=== PATIENT | male | born 1945 | race Caucasian/White ===

== ENCOUNTER 2018-02-07 21:49 | Emergency (ER) | payer MEDICARE, BC ==
[2018-02-07 22:31] VITALS: RESP 20; TEMP 98.1
[2018-02-08 00:12] LABS: Anisocytosis Slight; Basophils % (A) 1 %; Eosinophils # (A) 0.2 k/uL (0-0.7); Eosinophils % (A) 2 %; HCT 45.7 % (39.0-53.0); HGB 14.8 gm/dL (13.0-17.5); Lymphocytes # (A) 1.1 k/uL (1.0-4.8); Lymphocytes % (A) 17 %; MCH 28.8 pg (25.0-35.0); MCHC 32.4 g/dL (31.0-37.0); Mean Platelet Volume 6.8; Monocytes # (A) 0.3 k/uL (0-1.0); Monocytes % (A) 5 %; Neutrophils # (A) 4.6 k/uL (1.3-7.7); Neutrophils % (A) 71 %; Platelet Count 224 k/uL (150-450); Poikilocytosis Slight; RBC 5.13 m/uL (4.30-5.90); RDW 16.6 % (11.5-15.5); WBC 6.4 k/uL (3.8-10.6)
[2018-02-08 00:23] LABS: INR 2.8 (<1.2); Prothrombin Time 25.5 sec (9.0-12.0)
--- NOTE | 2018-02-08 00:23 | XR ---
EXAMINATION TYPE: XR chest 1V DATE OF EXAM: 02/08/2018 COMPARISON: NONE HISTORY: Leg swelling TECHNIQUE: Single frontal view of the chest is obtained. FINDINGS: There is no heart failure nor confluent pneumonic infiltrate. Heart is probably enlarged. There is left axillary pacemaker with the lead tips over the right ventricle. There is no sign of ple ural effusion. Bony thorax is intact. IMPRESSION: Cardiomegaly. No active cardiopulmonary disease. No overt heart failure.
[2018-02-08 00:32] LABS: Albumin 4.2 g/dL (3.5-5.0); C Reactive Protein 13.4 mg/L (<10.0); Calcium 8.7 mg/dL (8.4-10.2); Magnesium 2.1 mg/dL (1.6-2.3); Potassium 3.5 mmol/L (3.5-5.1); Total Bilirubin 0.6 mg/dL (0.2-1.3); Total Protein 6.3 g/dL (6.3-8.2)
--- NOTE | 2018-02-08 01:25 | ED ---
Extremity Problem HPI - General Chief complaint: Extremity Problem,Nontraumatic Stated complaint: LE swelling/rash Time Seen by Provider: 02/07/18 23:40 Source: patient, RN notes reviewed Mode of arrival: ambulatory Limitations: no limitations - History of Present Illness Initial comments: This is a 73-year-old male presents emergency Department chief complaint of bilateral lower extremity swelling, rash. He states his started over the last few days. Patient states that he is very strict on his fluid intake and watches his weight secondary to history of CHF. Patient states that he also has renal failure. Patient states his creatinine is usually between 1.3 and 1.6. Patient states that he hasgained some weight notices red rash which is not painful or itchy on his legs. Patient states that he's had minimal shortness of breath. Patient states he takes Lasix 60 mg twice a day. 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 He states he's had no dietary changes no medication changes. Patient's last hospitalization was for dehydration. - Related Data Home Medications Medication Instructions Recorded Confirmed Diltiazem Cd [Cardizem CD] 180 mg PO DAILY 02/02/15 02/02/15 Furosemide [Lasix] 80 mg PO DAILY 02/02/15 02/02/15 Irbesartan 300 mg PO DAILY 02/02/15 02/02/15 Metoprolol Succinate [Toprol XL] 50 mg PO BID 02/02/15 02/02/15 Potassium Chloride [Klor-Con 10] 10 meq PO DAILY 02/02/15 02/02/15 Warfarin [Coumadin] 1.25 mg PO DAILY 02/02/15 02/02/15 Allergies Allergy/AdvReac Type Severity Reaction Status Date / Time No Known Allergies Allergy Verified 02/07/18 22:31 Review of Systems ROS Statement: Those systems with pertinent positive or pertinent negative responses have been documented in the HPI. ROS Other: All systems not noted in ROS Statement are negative. Past Medical History Past Medical History: Atrial Fibrillation, Heart Failure, Hyperlipidemia, Hypertension, Renal Disease History of Any Multi-Drug Resistant Organisms: None Reported Past Surgical History: Cholecystectomy, Hernia Repair, Pacemaker Past Psychological History: No Psychological Hx Reported Smoking Status: Never smoker Past Alcohol Use History: None Reported Past Drug Use History: None Reported General Exam Limitations: no limitations General appearance: alert, in no apparent distress Head exam: Present: atraumatic, normocephalic, normal inspection Respiratory exam: Present: normal lung sounds bilaterally. Absent: respiratory distress, wheezes, rales, rhonchi, stridor Cardiovascular Exam: Present: regular rate, normal rhythm, normal heart sounds. Absent: systolic murmur, diastolic murmur, rubs, gallop, clicks Extremities exam: Present: other (Bilateral lower extremities neurovascular intact there is 1+ pitting edema noted, there is erythematous macular rash surrounding his knees, anterior cordon region there is no warmth to the rash) Course Vital Signs 02/07/18 22:28 Temperature 98.1 F Pulse Rate 99 Respiratory 20 Rate Blood Pressure 136/85 O2 Sat by Pulse 96 Oximetry Medical Decision Making - Medical Decision Making 73-year-old male presents from for leg swelling in rash. Patient has had mild leg swelling though he has no evidence of acute CHF. Patient will continue his Lasix as directed. He does have a vasculitis type rash. At this time he has a follow-up appointment Friday he will wears compression stockings continuation of his normal prescription meds and return for any worsening symptoms. - Lab Data Result diagrams: 02/08/18 00:03 02/08/18 00:03 Lab Results 02/08/18 02/08/18 02/08/18 Range/Units 00:03 00:03 00:03 WBC 6.4 (3.8-10.6) k/uL RBC 5.13 (4.30-5.90) m/uL Hgb 14.8 (13.0-17.5) gm/dL Hct 45.7 (39.0-53.0) % MCV 89.0 (80.0-100.0) fL MCH 28.8 (25.0-35.0) pg MCHC 32.4 (31.0-37.0) g/dL RDW 16.6 H (11.5-15.5) % Plt Count 224 (150-450) k/uL Neutrophils % 71 % Lymphocytes % 17 % Monocytes % 5 % Eosinophils % 2 % Basophils % 1 % Neutrophils # 4.6 (1.3-7.7) k/uL Lymphocytes # 1.1 (1.0-4.8) k/uL Monocytes # 0.3 (0-1.0) k/uL Eosinophils # 0.2 (0-0.7) k/uL Basophils # 0.0 (0-0.2) k/uL Poikilocytosis Slight Anisocytosis Slight ESR 3 (0-15) mm/hr PT (9.0-12.0) sec INR (<1.2) APTT (22.0-30.0) sec Sodium 143 (137-145) mmol/L Potassium 3.5 (3.5-5.1) mmol/L Chloride 108 H (98-107) mmol/L Carbon Dioxide 27 (22-30) mmol/L Anion Gap 8 mmol/L BUN 18 (9-20) mg/dL Creatinine 1.20 (0.66-1.25) mg/dL Est GFR (CKD-EPI)AfAm 68 (>60 ml/min/1.73 sqM) Est GFR (CKD-EPI)NonAf 59 (>60 ml/min/1.73 sqM) Glucose 122 H (74-99) mg/dL Calcium 8.7 (8.4-10.2) mg/dL Magnesium 2.1 (1.6-2.3) mg/dL Total Bilirubin 0.6 (0.2-1.3) mg/dL AST 30 (17-59) U/L ALT 36 (21-72) U/L Alkaline Phosphatase 85 (38-126) U/L C-Reactive Protein 13.4 H (<10.0) mg/L NT-Pro-B Natriuret Pep 683 pg/mL Total Protein 6.3 (6.3-8.2) g/dL Albumin 4.2 (3.5-5.0) g/dL 02/08/18 Range/Units 00:03 WBC (3.8-10.6) k/uL RBC (4.30-5.90) m/uL Hgb (13.0-17.5) gm/dL Hct (39.0-53.0) % MCV (80.0-100.0) fL MCH (25.0-35.0) pg MCHC (31.0-37.0) g/dL RDW (11.5-15.5) % Plt Count (150-450) k/uL Neutrophils % % Lymphocytes % % Monocytes % % Eosinophils % % Basophils % % Neutrophils # (1.3-7.7) k/uL Lymphocytes # (1.0-4.8) k/uL Monocytes # (0-1.0) k/uL Eosinophils # (0-0.7) k/uL Basophils # (0-0.2) k/uL Poikilocytosis Anisocytosis ESR (0-15) mm/hr PT 25.5 H (9.0-12.0) sec INR 2.8 H (<1.2) APTT 33.0 H (22.0-30.0) sec Sodium (137-145) mmol/L Potassium (3.5-5.1) mmol/L Chloride (98-107) mmol/L Carbon Dioxide (22-30) mmol/L Anion Gap mmol/L BUN (9-20) mg/dL Creatinine (0.66-1.25) mg/dL Est GFR (CKD-EPI)AfAm (>60 ml/min/1.73 sqM) Est GFR (CKD-EPI)NonAf (>60 ml/min/1.73 sqM) Glucose (74-99) mg/dL Calcium (8.4-10.2) mg/dL Magnesium (1.6-2.3) mg/dL Total Bilirubin (0.2-1.3) mg/dL AST (17-59) U/L ALT (21-72) U/L Alkaline Phosphatase (38-126) U/L C-Reactive Protein (<10.0) mg/L NT-Pro-B Natriuret Pep pg/mL Total Protein (6.3-8.2) g/dL Albumin (3.5-5.0) g/dL Disposition Clinical Impression: Localized swelling of both lower legs, Vasculitis Disposition: HOME SELF-CARE Condition: Stable Instructions: Leg Edema (ED) Additional Instructions: Please return to the Emergency Department if symptoms worsen or any other concerns. Is patient prescribed a controlled substance at d/c from ED?: No Referrals: Nonstaff,Physician [Primary Care Provider] - 1-2 days Time of Disposition: 01:51
[2018-02-08 01:41] LABS: Erythrocyte Sedimentation Rate 3 mm/hr (0-15)
[2018-02-08 02:16] VITALS: BP 146/99; PULSE 77
== END 2018-02-08 02:16 | disposition home or self-care (01) ==
LOC: EC 21:49
DX: I77.6 Arteritis, unspecified (principal); M79.89 Other specified soft tissue disorders; I48.91 Unspecified atrial fibrillation; I11.0 Hypertensive heart disease with heart failure; I50.9 Heart failure, unspecified; Z79.01 Long term (current) use of anticoagulants; Z79.899 Other long term (current) drug therapy; Z95.0 Presence of cardiac pacemaker
CPT/HCPCS: 36415; 71045; 80053; 83735; 83880; 85025; 85610; 85652; 85730; 86140; 99283

== ENCOUNTER 2018-07-01 12:59 | Emergency (ER) | payer MEDICARE, BC ==
[2018-07-01 13:51] VITALS: BP 129/64; PULSE 95; RESP 18; TEMP 97.8
[2018-07-01] MEDS ORDERED: LIDOCAINE 1% INJ 10MG/ML (20 ML MDV) SQ ONE (15:12)
--- NOTE | 2018-07-01 15:18 | ED ---
General Adult HPI - General Chief complaint: Wound/Laceration Stated complaint: Lt humb LAC, on blood thinners Source: patient Mode of arrival: ambulatory Limitations: no limitations - History of Present Illness Initial comments: Dictation was produced using [employer] dictation software. please excuse any grammatical, word or spelling errors. Chief Complaint: 73-year-old male past medical history of atrial fibrillation on Coumadin presents with thumb laceration to the left hand. History of Present Illness: Patient is 73-year-old male. He is on Coumadin for atrial fibrillation. Patient states he cut his finger on a table saw approximately 3 hours ago. Patient states he was bleeding however it has stopped since he has been applying pressure to his thumb. Patient has any functional loss to his DIP joint of the thumb. The ROS documented in this emergency department record has been reviewed and confirmed by me. Those systems with pertinent positive or negative responses have been documented in the HPI. All other systems are other negative and/or noncontributory. - Related Data Home Medications Medication Instructions Recorded Confirmed Aspirin EC [Ecotrin] 325 mg PO DAILY 07/01/18 07/01/18 Diltiazem HCl [Cardizem Cd] 360 mg PO DAILY 07/01/18 07/01/18 Furosemide [Lasix] 40 mg PO BID 07/01/18 07/01/18 Loratadine 10 mg PO DAILY 07/01/18 07/01/18 Potassium Chloride ER [K-Dur 20] 20 meq PO DAILY 07/01/18 07/01/18 Pramipexole [Mirapex] 0.5 mg PO BID 07/01/18 07/01/18 Warfarin [Coumadin] 2.5 mg PO MO 07/01/18 07/01/18 Warfarin [Coumadin] 2.5 mg PO SUTUWETHFRSA 07/01/18 07/01/18 Allergies Allergy/AdvReac Type Severity Reaction Status Date / Time No Known Allergies Allergy Verified 07/01/18 15:10 Review of Systems ROS Statement: Those systems with pertinent positive or pertinent negative responses have been documented in the HPI. ROS Other: All systems not noted in ROS Statement are negative. Past Medical History Past Medical History: Atrial Fibrillation, Heart Failure, Hyperlipidemia, Hypertension, Renal Disease History of Any Multi-Drug Resistant Organisms: None Reported Past Surgical History: Cholecystectomy, Hernia Repair, Pacemaker Past Psychological History: No Psychological Hx Reported Smoking Status: Never smoker Past Alcohol Use History: None Reported Past Drug Use History: None Reported General Exam - General Exam Comments Initial Comments: PHYSICAL EXAM: General Impression: Alert and oriented x3, not in acute distress HEENT: Normocephalic atraumatic, extra-ocular movements intact, pupils equal and reactive to light bilaterally, mucous membranes moist. Cardiovascular: Heart regular rate and rhythm, S1&S2 audible, no murmurs, rubs or gallops Chest: Lungs clear to auscultation bilaterally, no rhonchi, no wheeze, no rales Abdomen: Bowel sounds present, abdomen soft, non-tender, non-distended, no organomegaly Musculoskeletal: Pulses present and equal in all extremities, no peripheral edema Motor: Power 5/5 bilaterally, no focal deficits noted Neurological: CN II-XII grossly intact, no focal motor or sensory deficits noted Left hand: 1 mm wide laceration is superficial to the left distal thumb on the volar surface. Approximately is 1 cm in length Psych: Normal affect and mood Limitations: no limitations Course Vital Signs 07/01/18 13:49 Temperature 97.8 F Pulse Rate 95 Respiratory 18 Rate Blood Pressure 129/64 O2 Sat by Pulse 95 Oximetry Procedures - Laceration Laceration #1 Consent Obtained: verbal consent Time Out Performed: Yes Indication: laceration Site: hand, other Size (cm): 1 Description: linear Depth: simple, single layer Pre-repair: wound explored, irrigated extensively Type of Sutures: nylon Size of Sutures: 4-0 Number of Sutures: 4 Technique: simple, interrupted Patient Tolerated Procedure: well Medical Decision Making - Medical Decision Making ED course: 73-year-old male on Coumadin presents with thumb laceration. Patient is refusing x-ray. Vital signs upon arrival are within acceptable limits. Patient states he had a tetanus shot less than 10 years ago over his unsure if it's more than 5 years ago. Patient refusing tetanus shot due to uncertain time. Suture repair was performed using 4-0 nylon. Patient be discharged. Told to take his sutures out in 2 weeks. Patient placed in a splint and bandage applied. Disposition Clinical Impression: Laceration Disposition: HOME SELF-CARE Condition: Good Instructions: Laceration (ED) Additional Instructions: remove stitches in 14 days Is patient prescribed a controlled substance at d/c from ED?: No Referrals: Nonstaff,Physician [Primary Care Provider] - 1-2 days Time of Disposition: 15:55
== END 2018-07-01 16:16 | disposition home or self-care (01) ==
LOC: EC 12:59
DX: S61.012A Laceration without foreign body of left thumb without damage to nail, initial encounter (principal); I11.0 Hypertensive heart disease with heart failure; I50.9 Heart failure, unspecified; E78.5 Hyperlipidemia, unspecified; I48.91 Unspecified atrial fibrillation; Z79.01 Long term (current) use of anticoagulants; Z79.82 Long term (current) use of aspirin; Z79.899 Other long term (current) drug therapy; Z95.0 Presence of cardiac pacemaker; W31.2XXA Contact with powered woodworking and forming machines, initial encounter
CPT/HCPCS: 99282; 12001; J2001

== ENCOUNTER → 2018-07-08 | Outpatient (CLI) | payer MEDICARE, BC ==
--- NOTE | 2018-07-08 15:50 | CT ---
EXAMINATION TYPE: CT lumbar spine wo con DATE OF EXAM: 07/08/2018 3:30 PM COMPARISON: None HISTORY: Left leg pain and numbness x [address] DLP: 1763.2 mGycm Automated exposure control for dose reduction was used. TECHNIQUE: Unenhanced CT of the lumbar spine was performed. Bone and soft tissue window settings are submitted as well as coronal and sagittal reconstructions. FINDINGS: The lumbar spine vertebral bodies maintain normal vertebral body height and alignment. Ante rior osteophytes are seen within the lower lumbar spine and thoracolumbar junction. Mild facet arthro naveed is seen of the lower lumbar spine. No significant scoliosis is noted. No acute fracture or henna lignment of the lumbar spine. 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 L1-L2: Normal disc space height. No disc herniation protrusion or central stenosis. No facet joint arthropathy. No evidence for foraminal encroachment. L2-L3: There is a broad-based disc bulge resulting in mild bilateral neural foraminal narrowing and n o spinal canal stenosis. L3-L4: There is a broad-based disc bulge, facet arthropathy and ligamentum flavum buckling resulting in mild left and moderate right neural foraminal narrowing. No significant spinal canal stenosis. L4-L5: There is a broad-based disc bulge, ligamentum flavum buckling and facet arthropathy resulting in moderate bilateral neural foraminal narrowing. No spinal canal stenosis. L5-S1: There is a small central disc herniation superimposed upon a broad-based disc bulge that is le ft eccentric resulting in moderate left and [id number] right neural foraminal narrowing. No sig nificant spinal canal stenosis. IMPRESSION: 1. Small central disc herniation at L5-S1 superimposed upon a left eccentric broad-based disc bulge r esulting in moderate left neural foraminal narrowing. 2. Mild to moderate multilevel degenerative disc disease of the lumbar spine resulting in variable de grees of neural foraminal narrowing as described above. 3. No evidence of vertebral body height loss or malalignment of the lumbar spine. 4. Partial visualization of a horseshoe kidney.
== END | disposition home or self-care (01) ==
LOC: RADCTMAIN 15:15
PROVIDERS: ATTEND Psychiatry & Neurology Neurology
DX: M99.73 Connective tissue and disc stenosis of intervertebral foramina of lumbar region (principal); M51.27 Other intervertebral disc displacement, lumbosacral region; M51.36 Other intervertebral disc degeneration, lumbar region
CPT/HCPCS: 72131

== ENCOUNTER 2021-04-02 19:47 | Emergency (ER) | payer MEDICARE, BC ==
[2021-04-02 20:19] VITALS: BP 109/61; PULSE 84; RESP 18; TEMP 98.7
[2021-04-02] MEDS ORDERED: KETOROLAC 15 MG/ML 1 ML VIAL IM STA (21:42)
--- NOTE | 2021-04-02 22:41 | XR ---
EXAMINATION TYPE: XR hand complete bilateral DATE OF EXAM: 04/02/2021 COMPARISON: NONE HISTORY: Hand pain TECHNIQUE: 7 views FINDINGS: There are cystic changes in the distal radius bilaterally. There is moderate narrowing of t he radiocarpal joint spaces. There is some diffuse narrowing of the IP joint spaces of the fingers. M P joints appear intact. There is no subluxation. There is some thickening at the base of the first me tacarpal of the left hand that could be an old healed fracture of the thumb. There is bilateral narro wing of the first carpometacarpal joint spaces. 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 No fracture seen.
--- NOTE | 2021-04-02 22:57 | ED ---
Extremity Problem HPI - General Chief complaint: Extremity Problem,Nontraumatic Stated complaint: achy upper extremities Time Seen by Provider: 04/02/21 21:29 Source: patient, RN notes reviewed Mode of arrival: ambulatory Limitations: no limitations - History of Present Illness Initial comments: Patient is a 76-year-old male that presents to the emergency department complaining of bilateral hand pain. He notes that he is a diabetic and has peripheral neuropathy of his feet. He notes that he has not had his hemoglobin A1c checked over 6 months but states that it was good according to his doctor. Patient denies any injury or trauma to his hands. He was otherwise well- appearing. He denied any chest pain shortness of breath headache nausea vomi ting diarrhea constipation fever fatigue chills. - Related Data Home Medications Medication Instructions Recorded Confirmed Furosemide [Lasix] 80 mg PO BID 07/01/18 04/02/21 Loratadine 10 mg PO DAILY 07/01/18 04/02/21 Aspirin EC [Ecotrin Low Dose] 81 mg PO DAILY 04/02/21 04/02/21 Clopidogrel Bisulfate [Plavix] 75 mg PO DAILY 04/02/21 04/02/21 Gabapentin [Neurontin] 600 mg PO HS 04/02/21 04/02/21 Metoprolol Succinate [Toprol XL] 100 mg PO DAILY 04/02/21 04/02/21 Pramipexole [Mirapex] 1 mg PO DAILY@1500 04/02/21 04/02/21 Pramipexole [Mirapex] 2 mg PO DAILY@1900 04/02/21 04/02/21 Rosuvastatin [Crestor] 20 mg PO DIRECTED 04/02/21 04/02/21 Vit C/E/Zn/Coppr/Lutein/Zeaxan 1 cap PO BID 04/02/21 04/02/21 [Preservision Areds 2 Softgel] glipiZIDE [Glucotrol XL] 2.5 mg PO DAILY 04/02/21 04/02/21 lisinopriL [Zestril] 5 mg PO DAILY 04/02/21 04/02/21 Allergies Allergy/AdvReac Type Severity Reaction Status Date / Time No Known Allergies Allergy Verified 04/02/21 22:00 Review of Systems ROS Statement: Those systems with pertinent positive or pertinent negative responses have been documented in the HPI. ROS Other: All systems not noted in ROS Statement are negative. Past Medical History Past Medical History: Atrial Fibrillation, Heart Failure, Hyperlipidemia, Hypertension, Renal Disease History of Any Multi-Drug Resistant Organisms: None Reported Past Surgical History: Cholecystectomy, Hernia Repair, Pacemaker Past Psychological History: No Psychological Hx Reported Smoking Status: Never smoker Past Alcohol Use History: None Reported Past Drug Use History: None Reported General Exam Limitations: no limitations General appearance: alert, in no apparent distress Head exam: Present: atraumatic, normocephalic, normal inspection Eye exam: Present: normal appearance, PERRL, EOMI. Absent: scleral icterus, conjunctival injection, periorbital swelling ENT exam: Present: normal exam, mucous membranes moist Neck exam: Present: normal inspection Respiratory exam: Present: normal lung sounds bilaterally. Absent: respiratory distress, wheezes, rales, rhonchi, stridor Cardiovascular Exam: Present: regular rate, normal rhythm, normal heart sounds. Absent: systolic murmur, diastolic murmur, rubs, gallop, clicks GI/Abdominal exam: Present: soft, normal bowel sounds. Absent: distended, tenderness, guarding, rebound, rigid Extremities exam: Present: normal inspection, full ROM, normal capillary refill, other (Bilateral hands full range of motion, 5 out of 5 strength good capillary refill. Sensation.). Absent: tenderness, pedal edema, joint swelling, calf tenderness Neurological exam: Present: alert, oriented X3 Psychiatric exam: Present: normal affect, normal mood Skin exam: Present: warm, dry, intact, normal color. Absent: rash Course Vital Signs 04/02/21 20:16 Temperature 98.7 F Pulse Rate 84 Respiratory 18 Rate Blood Pressure 109/61 O2 Sat by Pulse 96 Oximetry Medical Decision Making - Medical Decision Making 76-year-old male complaining of bilateral hand pain with history of diabetic neuropathy. X-ray of bilateral hands, 15 mg of Toradol ordered. X-ray shows bilateral osteoarthritis with some inflammatory arthritis. Case discussed with Dr. Haynes, patient discharge home with follow-up primary care and sales designer. Tunnel 3 starter pack given. - Radiology Data Radiology results: report reviewed, image reviewed X-ray of the bilateral hands: There are abnormality is of both hands are consistent with combined ordinary osteoarthritis as well as some inflammatory arthritis at the radiocarpal joint. No fracture seen. Disposition Clinical Impression: Diabetic neuropathy, Bilateral hand pain Disposition: HOME SELF-CARE Condition: Stable Instructions (If sedation given, give patient instructions): Arthralgia (ED) Additional Instructions: Please return to the Emergency Department if symptoms worsen or any other concerns. Follow-up with primary care 1-2 days. Follow-up with sales designer as soon as possible. Take Tylenol 3 as prescribed. Is patient prescribed a controlled substance at d/c from ED?: No Referrals: Nonstaff,Physician [Primary Care Provider] - 1-2 days Time of Disposition: 23:12
[2021-04-02] MEDS ORDERED: ACET/COD 300 MG/30 MG STARTER PACK 6 TAB BTL PO STA (23:11)
== END 2021-04-02 23:28 | disposition home or self-care (01) ==
LOC: EC 19:47
DX: M79.641 Pain in right hand (principal); M79.642 Pain in left hand; I11.0 Hypertensive heart disease with heart failure; I50.9 Heart failure, unspecified; I48.91 Unspecified atrial fibrillation; E11.40 Type 2 diabetes mellitus with diabetic neuropathy, unspecified; E78.5 Hyperlipidemia, unspecified; Z79.82 Long term (current) use of aspirin; Z90.49 Acquired absence of other specified parts of digestive tract; Z95.0 Presence of cardiac pacemaker
CPT/HCPCS: 99283; 96372; 73130; J1885

== ENCOUNTER → 2021-07-20 | Outpatient (CLI) | payer MEDICARE, BC ==
[2021-07-20 21:52] LABS: HCT 58.5 % (39.6-50.0); HGB 18.6 g/dL (13.0-17.0); MCH 28.7 pg (27.0-32.0); MCHC 31.8 g/dL (32.0-37.0); MCV 90.4 fL (80.0-97.0); Mean Platelet Volume 9.9 fL (9.5-12.2); Platelet Count 288 X 10*3/uL (140-440); RBC 6.47 X 10*6/uL (4.40-5.60); RDW 17.2 % (11.5-14.5); WBC 10.86 X 10*3/uL (4.50-10.00)
[2021-07-20 22:05] LABS: Microalbumin Creatinine Ratio <30 mg/g Creat (0-30); Urine Creatinine 52.1 mg/dL (39.0-259.0)
[2021-07-20 23:40] LABS: Albumin 4.6 g/dL (3.8-4.9); Anion Gap 20.2 mmol/L (10.00-18.00); BUN/Creat Ratio 36.42 Ratio (12.00-20.00); Blood Urea Nitrogen 68.1 mg/dL (9.0-27.0); Calcium 10.1 mg/dL (8.7-10.3); Carbon Dioxide 28.1 mmol/L (20.0-27.5); Magnesium 2.2 mg/dL (1.5-2.4); Non-African American GFR(CKD) 33.7 (60.0-200.0); Phosphorus 3.7 mg/dL (2.4-5.1); Potassium 4.2 mmol/L (3.5-5.5)
== END | disposition home or self-care (01) ==
LOC: LABWHC1 10:24
PROVIDERS: ATTEND Internal Medicine
DX: E11.21 Type 2 diabetes mellitus with diabetic nephropathy (principal); N18.31 Chronic kidney disease, stage 3a; I50.42 Chronic combined systolic (congestive) and diastolic (congestive) heart failure
CPT/HCPCS: 36415; 80048; 82040; 82043; 82570; 83735; 83970; 84100; 85027

== ENCOUNTER → 2022-01-09 | Outpatient (CLI) | payer MEDICARE, BC ==
[2022-01-09 14:27] LABS: African American GFR (CKD) 53.1 (60.0-200.0); Albumin 4.4 g/dL (3.8-4.9); Anion Gap 13.7 mmol/L (10.00-18.00); BUN/Creat Ratio 27.38 Ratio (12.00-20.00); Blood Urea Nitrogen 39.7 mg/dL (9.0-27.0); Calcium 9.4 mg/dL (8.7-10.3); Carbon Dioxide 27.5 mmol/L (20.0-27.5); Magnesium 2.1 mg/dL (1.5-2.4); Non-African American GFR(CKD) 45.8 (60.0-200.0); Phosphorus 3.1 mg/dL (2.4-5.1)
== END | disposition home or self-care (01) ==
LOC: LABWHC1 09:10
PROVIDERS: ATTEND Internal Medicine
DX: N18.31 Chronic kidney disease, stage 3a (principal)
CPT/HCPCS: 36415; 80048; 82040; 83735; 84100

== ENCOUNTER → 2022-01-30 | Outpatient (CLI) | payer MEDICARE, BC ==
[2022-01-30 14:59] LABS: African American GFR (CKD) 58.4 (60.0-200.0); Albumin 4.4 g/dL (3.8-4.9); Albumin/Globulin Ratio 2.11 (1.60-3.17); Anion Gap 15.6 mmol/L (10.00-18.00); BUN/Creat Ratio 34.25 Ratio (12.00-20.00); Blood Urea Nitrogen 45.9 mg/dL (9.0-27.0); Calcium 9.4 mg/dL (8.7-10.3); Globulin 2.1 g/dL (1.6-3.3); Non-African American GFR(CKD) 50.4 (60.0-200.0); Potassium 3.4 mmol/L (3.5-5.5); Total Bilirubin 0.9 mg/dL (0.30-1.20); Total Protein 6.5 g/dL (6.2-8.2); Uric Acid 8.7 mg/dL (3.7-8.7)
== END | disposition home or self-care (01) ==
LOC: LABWHC1 08:37
PROVIDERS: ATTEND Emergency Medicine
DX: I11.0 Hypertensive heart disease with heart failure (principal); I50.42 Chronic combined systolic (congestive) and diastolic (congestive) heart failure; E11.9 Type 2 diabetes mellitus without complications; M10.9 Gout, unspecified; Z79.899 Other long term (current) drug therapy
CPT/HCPCS: 36415; 80053; 84550

== ENCOUNTER 2022-04-21 11:50 | Observation (INO) | payer MEDICARE, BC ==
--- NOTE | 2022-04-21 12:12 | ED ---
General Adult HPI - General Chief complaint: Dizziness Stated complaint: Loss of balance,poss stroke Time Seen by Provider: 04/21/22 12:02 Source: patient, family, RN notes reviewed Mode of arrival: ambulatory Limitations: no limitations - History of Present Illness Initial comments: Patient is a pleasant 77-year-old male presenting to the emergency department following episode at home. Patient was working with a saw bending over. Patient felt lightheaded. Patient almost fell but caught himself. Patient did have difficulty using his left arm and left leg. Patient did not feel they were week however did not have good control in coordination with them. Patient states this lasted 10-15 minutes. Patient states that has resolved at this time is back to normal. No confusion. No speech problems. No history of similar symptoms previously - Related Data Home Medications Medication Instructions Recorded Confirmed Furosemide [Lasix] 80 mg PO BID 07/01/18 04/02/21 Loratadine 10 mg PO DAILY 07/01/18 04/02/21 Aspirin EC [Ecotrin Low Dose] 81 mg PO DAILY 04/02/21 04/02/21 Clopidogrel Bisulfate [Plavix] 75 mg PO DAILY 04/02/21 04/02/21 Gabapentin [Neurontin] 600 mg PO HS 04/02/21 04/02/21 Metoprolol Succinate [Toprol XL] 100 mg PO DAILY 04/02/21 04/02/21 Pramipexole [Mirapex] 1 mg PO DAILY@1500 04/02/21 04/02/21 Pramipexole [Mirapex] 2 mg PO DAILY@1900 04/02/21 04/02/21 Rosuvastatin [Crestor] 20 mg PO DIRECTED 04/02/21 04/02/21 Vit C/E/Zn/Coppr/Lutein/Zeaxan 1 cap PO BID 04/02/21 04/02/21 [Preservision Areds 2 Softgel] glipiZIDE [Glucotrol XL] 2.5 mg PO DAILY 04/02/21 04/02/21 lisinopriL [Zestril] 5 mg PO DAILY 04/02/21 04/02/21 Allergies Allergy/AdvReac Type Severity Reaction Status Date / Time No Known Allergies Allergy Verified 04/02/21 22:00 Review of Systems ROS Statement: Those systems with pertinent positive or pertinent negative responses have been documented in the HPI. ROS Other: All systems not noted in ROS Statement are negative. Constitutional: Denies: fever Eyes: Denies: eye pain ENT: Denies: ear pain Respiratory: Denies: cough Cardiovascular: Denies: chest pain, palpitations Endocrine: Denies: fatigue Gastrointestinal: Denies: abdominal pain Genitourinary: Denies: dysuria Musculoskeletal: Denies: back pain Skin: Denies: rash Neurological: Reports: as per HPI. Denies: headache Past Medical History Past Medical History: Atrial Fibrillation, Heart Failure, Hyperlipidemia, Hypertension, Renal Disease History of Any Multi-Drug Resistant Organisms: None Reported Past Surgical History: Cholecystectomy, Hernia Repair, Pacemaker Past Psychological History: No Psychological Hx Reported Smoking Status: Never smoker Past Alcohol Use History: None Reported Past Drug Use History: None Reported General Exam Limitations: no limitations General appearance: alert, in no apparent distress Head exam: Present: atraumatic, normocephalic Eye exam: Present: normal appearance, PERRL, EOMI ENT exam: Present: normal oropharynx Neck exam: Present: normal inspection Respiratory exam: Present: normal lung sounds bilaterally Cardiovascular Exam: Present: normal rhythm, irregular rhythm GI/Abdominal exam: Present: soft. Absent: tenderness, guarding Extremities exam: Present: normal inspection Neurological exam: Present: alert, oriented X3, CN II-XII intact. Absent: motor sensory deficit Expanded Neurological exam: Present: protecting the airway Speech: Present: fluid speech Cranial nerves: EOM's Intact: Normal, Facial Sensation: Normal Cerebellar function: Finger to Nose: Normal Sensory exam: Upper Extremity Light Touch: Normal, Lower Extremity Light Touch: Normal Motor strength exam: RUE: 5, LUE: 5, RLE: 5, LLE: 5 Eye Response: (4) open spontaneously Motor Response: (6) obeys commands Verbal Response: (5) oriented Psychiatric exam: Present: normal affect, normal mood Skin exam: Present: other (Lower leg discoloration consistent with chronic venous insufficiency) Course Vital Signs 04/21/22 04/21/22 11:55 12:35 Temperature 97.7 F Pulse Rate 70 76 Respiratory 18 16 Rate Blood Pressure 97/65 101/75 O2 Sat by Pulse 96 96 Oximetry - Reevaluation(s) Reevaluation #1: 04/21/22 12:19 Case was discussed with Dr. Antoine who agrees patient is not a TPA candidate. Patient is not considered TPA candidate secondary to risks outweigh the benefit. In addition symptoms have resolved. He does recommend reconsidering anticoagulation for patient's history of atrial fibrillation as an inpatient. EKG Findings - EKG Comments: EKG Findings:: A. fib with rate of 88. QRS 106. QT 388. QTC 433. Left axis. Poor R-wave progression. No acute ST change. Isolated paced beat Medical Decision Making - Medical Decision Making Patient reevaluated. Patient and family updated. [facility] physician group has been paged for admission covering hospital observation Case discussed with Dr. Abarca, who will admit - Lab Data Result diagrams: 04/21/22 12:23 04/21/22 12:23 Lab Results 04/21/22 04/21/22 04/21/22 Range/Units 12:16 12:23 12:23 WBC 8.2 (3.8-10.6) k/uL RBC 5.57 (4.30-5.90) m/uL Hgb 17.1 (13.0-17.5) gm/dL Hct 51.8 (39.0-53.0) % MCV 93.1 (80.0-100.0) fL MCH 30.7 (25.0-35.0) pg MCHC 32.9 (31.0-37.0) g/dL RDW 16.7 H (11.5-15.5) % Plt Count 171 (150-450) k/uL MPV 9.0 Neutrophils % 84 % Lymphocytes % 9 % Monocytes % 4 % Eosinophils % 1 % Basophils % 1 % Neutrophils # 6.9 (1.3-7.7) k/uL Lymphocytes # 0.7 L (1.0-4.8) k/uL Monocytes # 0.3 (0-1.0) k/uL Eosinophils # 0.1 (0-0.7) k/uL Basophils # 0.1 (0-0.2) k/uL Anisocytosis Slight PT 10.6 (9.0-12.0) sec INR 1.0 (<1.2) APTT 23.2 (22.0-30.0) sec Sodium (137-145) mmol/L Potassium (3.5-5.1) mmol/L Chloride (98-107) mmol/L Carbon Dioxide (22-30) mmol/L Anion Gap mmol/L BUN (9-20) mg/dL Creatinine (0.66-1.25) mg/dL Est GFR (CKD-EPI)AfAm (>60 ml/min/1.73 sqM) Est GFR (CKD-EPI)NonAf (>60 ml/min/1.73 sqM) Glucose (74-99) mg/dL POC Glucose (mg/dL) 137 H (70-110) mg/dL POC Glu [employer] ID [place], [place]ad Calcium (8.4-10.2) mg/dL Total Bilirubin (0.2-1.3) mg/dL AST (17-59) U/L ALT (4-49) U/L Alkaline Phosphatase (38-126) U/L Total Protein (6.3-8.2) g/dL Albumin (3.5-5.0) g/dL TSH (0.465-4.680) mIU/L Free T4 (0.78-2.19) ng/dL Free T3 pg/mL (2.8-5.3) pg/ml 04/21/22 Range/Units 12:23 WBC (3.8-10.6) k/uL RBC (4.30-5.90) m/uL Hgb (13.0-17.5) gm/dL Hct (39.0-53.0) % MCV (80.0-100.0) fL MCH (25.0-35.0) pg MCHC (31.0-37.0) g/dL RDW (11.5-15.5) % Plt Count (150-450) k/uL MPV Neutrophils % % Lymphocytes % % Monocytes % % Eosinophils % % Basophils % % Neutrophils # (1.3-7.7) k/uL Lymphocytes # (1.0-4.8) k/uL Monocytes # (0-1.0) k/uL Eosinophils # (0-0.7) k/uL Basophils # (0-0.2) k/uL Anisocytosis PT (9.0-12.0) sec INR (<1.2) APTT (22.0-30.0) sec Sodium 138 (137-145) mmol/L Potassium 3.8 (3.5-5.1) mmol/L Chloride 101 (98-107) mmol/L Carbon Dioxide 23 (22-30) mmol/L Anion Gap 14 mmol/L BUN 32 H (9-20) mg/dL Creatinine 1.19 (0.66-1.25) mg/dL Est GFR (CKD-EPI)AfAm 67 (>60 ml/min/1.73 sqM) Est GFR (CKD-EPI)NonAf 58 (>60 ml/min/1.73 sqM) Glucose 133 H (74-99) mg/dL POC Glucose (mg/dL) (70-110) mg/dL POC Glu [employer] ID Calcium 9.0 (8.4-10.2) mg/dL Total Bilirubin 0.9 (0.2-1.3) mg/dL AST 41 (17-59) U/L ALT 38 (4-49) U/L Alkaline Phosphatase 112 (38-126) U/L Total Protein 6.8 (6.3-8.2) g/dL Albumin 4.4 (3.5-5.0) g/dL TSH 2.460 (0.465-4.680) mIU/L Free T4 0.97 (0.78-2.19) ng/dL Free T3 pg/mL 3.1 (2.8-5.3) pg/ml - Radiology Data Radiology results: report reviewed (CT brain does not reveal acute abnormality. Cannot rule out chronic subdural hygroma) Disposition Clinical Impression: Transient cerebral ischemia Disposition: ADMITTED IP TO THIS HOSP Is patient prescribed a controlled substance at d/c from ED?: No Referrals: Nonstaff,Physician [Primary Care Provider] - 1-2 days Time of Disposition: 13:34
[2022-04-21 12:17] LABS: Glucose,Whole Blood 137 mg/dL (70-110)
--- NOTE | 2022-04-21 12:34 | CT ---
EXAMINATION TYPE: CT brain wo con for TPA DATE OF EXAM: 04/21/2022 COMPARISON: None HISTORY: Neuro deficits, stroke suspected CT DLP: 1176.6 mGycm Automated exposure control for dose reduction was used. Helical imaging through the brain. FINDINGS: Cortical atrophy is present. Periventricular white matter shows patchy low attenuation. There are pro minent extra-axial fluid spaces over the convexities with CSF density present, difficult to exclude s ubdural hygromas. Cerebral vascular calcifications are present. Calvarium is intact. Left maxillary s inus is opacified. Orbits show symmetric appearance. IMPRESSION: AGE-RELATED ATROPHY AND CHRONIC SMALL VESSEL ISCHEMIC CHANGES, DIFFICULT TO EXCLUDE CHRONIC SUBDURAL HYGROMAS. CORRELATE FOR LEFT MAXILLARY SINUSITIS. CONSIDER MRI INDICATED.
[2022-04-21 12:44] LABS: Anisocytosis Slight; Basophils # (A) 0.1 k/uL (0-0.2); Basophils % (A) 1 %; Eosinophils # (A) 0.1 k/uL (0-0.7); Eosinophils % (A) 1 %; HCT 51.8 % (39.0-53.0); HGB 17.1 gm/dL (13.0-17.5); Lymphocytes # (A) 0.7 k/uL (1.0-4.8); Lymphocytes % (A) 9 %; MCH 30.7 pg (25.0-35.0); MCHC 32.9 g/dL (31.0-37.0); MCV 93.1 fL (80.0-100.0); Monocytes # (A) 0.3 k/uL (0-1.0); Monocytes % (A) 4 %; Neutrophils # (A) 6.9 k/uL (1.3-7.7); Neutrophils % (A) 84 %; Partial Thromboplastin Time 23.2 sec (22.0-30.0); Platelet Count 171 k/uL (150-450); Prothrombin Time 10.6 sec (9.0-12.0); RBC 5.57 m/uL (4.30-5.90); RDW 16.7 % (11.5-15.5); WBC 8.2 k/uL (3.8-10.6)
[2022-04-21 12:56] LABS: Albumin 4.4 g/dL (3.5-5.0); Potassium 3.8 mmol/L (3.5-5.1); Total Bilirubin 0.9 mg/dL (0.2-1.3); Total Protein 6.8 g/dL (6.3-8.2)
[2022-04-21 13:12] LABS: T4, Free (Free Thyroxine) 0.97 ng/dL (0.78-2.19)
[2022-04-21] MEDS ORDERED: ASPIRIN 325 MG TAB PO STA (13:41)
--- NOTE | 2022-04-21 13:42 | CT ---
EXAMINATION TYPE: CT angio head neck DATE OF EXAM: 04/21/2022 HISTORY: Neuro deficits code stroke COMPARISON: CT brain same date CT DLP: 1026.1 mGycm. Automated Exposure Control for Dose Reduction was Utilized. TECHNIQUE: CTA scan of the head and neck is performed with IV Contrast, patient injected with 65 mL of Isovue 370, axial images are obtained, coronal and sagittal reformatted images are reviewed. 3D re constructed images are created on an independent workstation and reviewed. FINDINGS: The heart is enlarged. Leads are present in the right atrium and ventricle. Prominent centr al pulmonary artery may be indicative of pulmonary artery hypertension. Carotid/Vascular Structures: Aorta is patent. There are 3 super aortic branch vessels. Left and right subclavian, innominate, left and right common carotid arteries are patent. Left and right vertebral arteries are patent, right vertebral artery is dominant. Internal and external carotid arteries are p atent, there is no evident stenosis. Within the brain the anterior and posterior circulation is patent. There is no evident aneurysm, diss ection, stenosis, or embolus. Other: Left maxillary sinus disease is again seen. IMPRESSION: No significant abnormality is seen. NASCET criteria was used in interpretation of this exam?
--- NOTE | 2022-04-21 14:01 | XR ---
EXAMINATION TYPE: XR chest 2V DATE OF EXAM: 04/21/2022 COMPARISON: Chest x-ray 02/08/2018 HISTORY: Altered mental status, left arm and leg weakness TECHNIQUE: Frontal and lateral views of the chest are obtained. FINDINGS: There is no focal air space opacity, pleural effusion, or pneumothorax seen. There is a ge nerator in left pectoral region, leads in the right atrium and ventricle. Eventration of right hemidi aphragm is noted as on prior exam. There are overlying leads. The cardiac silhouette size is stable. The osseous structures are intact. IMPRESSION: No acute cardiopulmonary process.
[2022-04-21] MEDS ORDERED: DEXTROSE 50% SYRINGE 50 ML IVP PRN ×2 (14:31)
[2022-04-21] MEDS ORDERED: PRAMIPEXOLE 1 MG TAB PO SCH ×2 (15:00→19:00)
--- NOTE | 2022-04-21 15:26 | P.HPIM ---
History of Present Illness H&P Date: 04/21/22 85-year-old male with PMH of atrial fibrillation status post Watchman procedure, pacemaker, CHF unknown EF, diabetes mellitus presents to the ED for left-sided weakness. Patient reports bending over this morning to remove a wheel from a table saw, as he stood up, he experienced lightheadedness and profound weakness in his LEO and LLE. He reported feeling off balance as well. He denies any confusion. He denies any slurred speech. Symptoms lasted 15 minutes. Patient denies any headache, lower extremity edema, nausea or vomiting, fever or chills, cough, chest pain, shortness breath, palpitations, changes in urination or bowel habits. No changes in appetite or weight. The ED, vital signs are stable. CBC, coagulation panel, CMP was relatively benign. TSH within normal limits. CT head and CT head and neck negative for acute finding. Chest x-ray negative. EKG showing atrial fibrillation. Patient is admitted for TIA with neurology consultation. Review of systems performed and is negative except above. General: non toxic, no distress, appears at stated age Derm: warm, dry Head: atraumatic, normocephalic, symmetric Eyes: EOMI, no lid lag, anicteric sclera Mouth: no lip lesion, mucus membranes moist Cardiovascular: Irregularly irregular, no murmur, positive posterior tibial puls e bilateral, Lungs: CTA bilateral, no rhonchi, no rales , no accessory muscle use Abdominal: soft, nontender to palpation, no guarding, no appreciable organomegaly Ext: no gross muscle atrophy, no edema, no contractures Neuro: CN II-XI grossly intact, no focal neuro deficits Psych: Alert, oriented, appropriate affect #TIA #Atrial fibrillation status post watchman procedure #Elevated BUN #Congestive heart failure, unknown EF #Diabetes mellitus #Gout #Peripheral neuropathy #Seasonal ALLERGIES CT head shows chronic small vessel ischemic changes, possible chronic subdural hygroma, left maxillary sinusitis. Symptoms resolved within 15-20 minutes. No TPA recommended by neuro interventional. Patient unable to obtain MRI due to pacemaker. He'll be started on aspirin and Plavix. Echocardiogram will be ordered. Carotid duplex ordered. Hemoglobin A1c and lipid panel ordered. PTOT and ST consult ordered. Patient be placed on telemetry monitoring. Neurology consulted for further management. BUN likely due to dehydration. Also on Lasix and YANETH inhibitor. Start normal saline at 50 mL per hour. Repeat BMP tomorrow morning. Restart lisinopril and metoprolol. Echocardiogram ordered as above. Cardiology consulted for further management. Low-dose insulin sliding scale along with Accu-Cheks 4 times a day and hypoglycemic precautions. Restart allopurinol. Restart gabapentin. Restart Claritin. DVT prophylaxis: Heparin subcutaneously Discussed with: Patient Anticipated discharge: 1-[address]: Home A total of 35 minutes was spent on the care of this complex patient more than 50% of the time was spent in counseling and care coordination. Patient names his decision maker if he can't make decisions for himself. Patient would like to be full code. Past Medical History Past Medical History: Atrial Fibrillation, Heart Failure, Hyperlipidemia, Hypertension, Renal Disease History of Any Multi-Drug Resistant Organisms: None Reported Past Surgical History: Cholecystectomy, Hernia Repair, Pacemaker Past Psychological History: No Psychological Hx Reported Smoking Status: Never smoker Past Alcohol Use History: None Reported Past Drug Use History: None Reported Medications and Allergies Home Medications Medication Instructions Recorded Confirmed Type Furosemide [Lasix] 80 mg PO BID 07/01/18 04/21/22 History Loratadine 10 mg PO HS 07/01/18 04/21/22 History Gabapentin [Neurontin] 600 mg PO HS 04/02/21 04/21/22 History Metoprolol Succinate [Toprol XL] 100 mg PO DAILY 04/02/21 04/21/22 History Pramipexole [Mirapex] 1 mg PO DAILY@1500 04/02/21 04/21/22 History Pramipexole [Mirapex] 2 mg PO DAILY@1900 04/02/21 04/21/22 History Vit C/E/Zn/Coppr/Lutein/Zeaxan 1 cap PO BID 04/02/21 04/21/22 History [Preservision Areds 2 Softgel] lisinopriL [Zestril] 5 mg PO DAILY 04/02/21 04/21/22 History Dulaglutide [Trulicity] 0.75 mg SQ SA 04/21/22 04/21/22 History allopurinoL [Zyloprim] 100 mg PO TID 04/21/22 04/21/22 History metOLazone [Zaroxolyn] 2.5 mg PO DAILY PRN 04/21/22 04/21/22 History Allergies Allergy/AdvReac Type Severity Reaction Status Date / Time No Known Allergies Allergy Verified 04/21/22 14:43 Physical Exam Vitals: Vital Signs Temp Pulse Resp BP Pulse Ox 04/21/22 12:35 76 16 101/75 96 04/21/22 11:55 97.7 F 70 18 97/65 96 Intake and Output 04/21/22 04/21/22 04/21/22 06:59 14:59 22:59 Other: Weight 102.512 kg Results CBC & Chem 7: 04/21/22 12:23 04/21/22 12:23 Labs: Abnormal Lab Results - Last 24 Hours (Table) 04/21/22 04/21/22 04/21/22 Range/Units 12:16 12:23 12:23 RDW 16.7 H (11.5-15.5) % Lymphocytes # 0.7 L (1.0-4.8) k/uL BUN 32 H (9-20) mg/dL Glucose 133 H (74-99) mg/dL POC Glucose (mg/dL) 137 H (70-110) mg/dL
--- NOTE | 2022-04-21 15:46 | US ---
EXAMINATION TYPE: US carotid duplex BILAT DATE OF EXAM: 04/21/2022 COMPARISON: CTA CLINICAL HISTORY: TIA. TECHNIQUE: Carotid duplex ultrasound examination. Indirect Doppler criteria was utilized. FINDINGS: EXAM MEASUREMENTS: RIGHT: Peak Systolic Velocity (PSV) cm/sec ----- Right CCA: 59.0 ----- Right ICA: 64.2 ----- Right ECA: 79.8 ICA/CCA ratio: 1.1 RIGHT: End Diastole cm/sec ----- Right CCA: 18.0 ----- Right ICA: 21.5 ----- Right ECA: 7.3 LEFT: Peak Systolic Velocity (PSV) cm/sec ----- Left CCA: 57.4 ----- Left ICA: 58.6 ----- Left ECA: 44.0 ICA/CCA ratio: 1.0 LEFT: End Diastole cm/sec ----- Left CCA: 16.8 ----- Left ICA: 28.1 ----- Left ECA: 7.2 VERTEBRALS (direction of flow): Right Vertebral: Antegrade Left Vertebral: appears to be retrograde Rhythm: Arrhythmia MOLECULAR BIOLOGY SCIENTIST NOTES: Patient has large thick neck. Mild atherosclerotic changes without significant velocity increases. IMPRESSION: Less than 50% stenosis of the bilateral carotid bifurcations. Criteria for Assigning % of Stenosis / Diameter reduction (Estimation based on the indirect measurements of the internal carotid artery velocities (ICA PSV). 1. Normal (no stenosis)=ICA PSV < 125 cm/s: ratio < 2.0: ICA EDV<40 cm/s. 2. Less than 50% stenosis=ICA PSV < 125 cm/s: ratio < 2.0: ICA EDV<40 cm/s. 3. 50 to 69% stenosis=ICA PSV of 125 to 230 cm/s: ration 2.0 ? 4.0: ICA EDV 40-100 cm/s. 4. Greater than 70% stenosis to near occlusion= ICA PSV > 230 cm/s: ratio > 4.0: ICA EDV > 100 cm/s. 5. Near occlusion= ICA PSV velocities may be low or undetectable: variable ratio and ICA EDV. 6. Total occlusion=unable to detect flow.
[2022-04-21] MEDS: FUROSEMIDE 40 MG TAB PO SCH (16:12)
[2022-04-21] MEDS: CLOPIDOGREL 75 MG TAB PO SCH (16:12)
[2022-04-21] MEDS: allopurinoL 100 MG TAB PO SCH ×2 (16:12→21:02)
[2022-04-21] MEDS: SODIUM CHLORIDE 0.9% 1,000 ML IV SCH (16:18)
[2022-04-21 17:23] LABS: Glucose,Whole Blood 144 mg/dL (70-110)
[2022-04-21] MEDS: INSULIN ASPART (NovoLOG) 100 UNIT/ML VIAL SQ SCH ×2 (18:12→20:44)
[2022-04-21 20:38] LABS: Glucose,Whole Blood 134 mg/dL (70-110)
[2022-04-21] MEDS: HEPARIN SODIUM,PORCINE/PF 5,000 UNIT/0.5 ML SYRINGE SQ SCH (20:42)
[2022-04-21] MEDS ORDERED: GABAPENTIN 300 MG CAP PO SCH (21:00)
[2022-04-22] MEDS ORDERED: ATORVASTATIN 40 MG TAB PO SCH (07:30)
[2022-04-22 07:41] LABS: Glucose,Whole Blood 112 mg/dL (70-110)
[2022-04-22] MEDS ORDERED: POTASSIUM CHLORIDE ER 20 MEQ TAB.ER PO STA (07:55)
[2022-04-22] MEDS: INSULIN ASPART (NovoLOG) 100 UNIT/ML VIAL SQ SCH ×2 (08:59→15:22)
[2022-04-22] MEDS ORDERED: lisinopriL 5 MG TAB PO SCH (09:00)
[2022-04-22] MEDS ORDERED: ASPIRIN 81 MG PO SCH (09:00)
[2022-04-22] MEDS ORDERED: ATORVASTATIN 20 MG TAB PO SCH (09:00)
[2022-04-22] MEDS ORDERED: METOPROLOL SUCCINATE (ER) 100 MG TAB.ER.24H PO SCH (09:00)
[2022-04-22] MEDS ORDERED: ASPIRIN 325 MG TAB PO SCH (09:00)
[2022-04-22] MEDS ORDERED: LORATADINE 10 MG TAB PO SCH (09:00)
[2022-04-22 09:38] LABS: Chol/HDL Ratio 3.01 Ratio; LDL Cholesterol,Calculated 42.6 mg/dL (0.0-131.0)
--- NOTE | 2022-04-22 09:45 | CA ---
Transthoracic Echo Report Name: Talha Hdez Age: 77 Gender: M : 1945 Exam Date: 04/22/2022 08:15 Exam Location: [facility] Ht (in): 67 Wt (lb): 226 Ordering Physician: Bobbi Moon MD Attending/Referring Phys: [employer] Inspector Valerie Amos RDCS Procedure CPT: Indications: WITH BUBBLE STUDY Cardiac Hx: Technical Quality: Good Contrast 1: Total Dose (mL): Contrast 2: Total Dose (mL): MEASUREMENTS (Male / Female) Normal Values 2D ECHO LV Diastolic Diameter PLAX 3.7 cm 4.2 - 5.9 / 3.9 - 5.3 cm LV Systolic Diameter PLAX 3.4 cm IVS Diastolic Thickness 1.8 cm 0.6 - 1.0 / 0.6 - 0.9 cm LVPW Diastolic Thickness 1.5 cm 0.6 - 1.0 / 0.6 - 0.9 cm LV Relative Wall Thickness 0.9 RV Internal Dim ED PLAX 3.8 cm LA Systolic Diameter LX 4.4 cm 3.0 - 4.0 / 2.7 - 3.8 cm LA Volume 81.1 cm??? 18 - 58 / 22 - 52 cm??? M-MODE Aortic Root Diameter MM 3.3 cm MV E Point Septal Separation 0.6 cm AV Cusp Separation MM 1.9 cm DOPPLER AV Peak Velocity 81.9 cm/s AV Peak Gradient 2.7 mmHg MV Area PHT 4.9 cm??? MV Deceleration Time 196.4 ms TR Peak Velocity 297.7 cm/s TR Peak Gradient 35.5 mmHg Right Ventricular Systolic Press 40.1 mmHg FINDINGS Left Ventricle Left ventricular ejection fraction is estimated at 40-45 %. Severely increased septal wall thickness. Left ventricular cavity size normal. Right Ventricle Mild right ventricular dilatation. Mild pulmonary hypertension. Right Atrium Normal right atrial size. Left Atrium Mildly increased left atrial diameter. Severely increased left atrial volume. Moderately increased left atrial area. Mitral Valve Mild mitral regurgitation. Aortic Valve Trileaflet aortic valve. No aortic valve stenosis or regurgitation. Tricuspid Valve Mild tricuspid regurgitation. Pulmonic Valve Trace pulmonic regurgitation. Pericardium No pericardial effusion. Normal pericardium. Aorta Normal size aortic root and proximal ascending aorta. CONCLUSIONS LV size and systolic function is normal there is moderate concentric LVH somewhat increased septal compared to rest ventricle. There is mild right ventricular prominence. Aortic valve sclerosis. No pericardial effusion. Mild mitral and tricuspid insufficiency Previewed by: Dr. Mukesh Bal MD (Electronically Signed) Final Date: 22 April 2022 09:44
[2022-04-22] MEDS: FUROSEMIDE 40 MG TAB PO SCH (10:03)
[2022-04-22] MEDS: CLOPIDOGREL 75 MG TAB PO SCH (10:03)
[2022-04-22] MEDS: allopurinoL 100 MG TAB PO SCH (10:04)
[2022-04-22] MEDS: HEPARIN SODIUM,PORCINE/PF 5,000 UNIT/0.5 ML SYRINGE SQ SCH (10:04)
[2022-04-22] MEDS: SODIUM CHLORIDE 0.9% 1,000 ML IV SCH (10:57)
--- NOTE | 2022-04-22 12:22 | P.DS ---
Providers Date of admission: 04/21/22 13:41 Expected date of discharge: 04/22/22 Attending physician: Bob Hernandez MD Consults: 04/21/22 13:42 Consult Physician Routine Consulting Provider: Precious Richards Consult Reason/Comments: tia Do you want consulting provider notified?: Yes Consult Physician Routine Consulting Provider: Reddy Farrell Consult Reason/Comments: a fib, tia, on plavix Do you want consulting provider notified?: Yes Primary care physician: Physician Nonstaff Hospital Course: Discharge Diagnosis: TIA, patient discharged home on dual antiplatelet therapy with aspirin and Plavix 21 days followed by aspirin indefinitely. Chronic atrial fibrillation status post watchman procedure, continue to follow up outpatient with method consultant as discussed. Hypertension Hyperlipidemia/hypertriglyceridemia Hjk-raimpko-zqzvlubjl diabetes mellitus Left maxillary sinusitis , likely chronic as patient asymptomatic. Hospital Course: Patient is a very pleasant 77-year-old male with a past medical history of chronic atrial fibrillation status post watchman device, hypertension, and type II ndc-xchigaa-ddclvgmos diabetes mellitus. He presented to the emergency department with a chief complaint of difficulties with balance. Exception in left-sided weakness. Patient was reportedly bent over working and became lightheaded. Upon standing patient reportedly had difficulty using his left arm and leg stating they felt like cement and very heavy and this was accompanied by his balance feeling off and difficulties with coordination. Patient states this lasted approximately 15 minutes prior to resolving spontaneously. Upon arrival to the emergency department patient had no complaints stating he was back to his baseline. He underwent full evaluation. CBC, coags, and CMP showing no significant abnormalities. CT head revealing age-related atrophy and chronic s mall vessel ischemic changes, difficult to exclude chronic subdural hygromas. CTA head and neck revealing left maxillary sinus disease, chronic patient asymptomatic and was negative for acute abnormalities. EKG showing atrial fibrillation with a controlled ventricular rate of 88 bpm. Chest x-ray negative for acute cardiopulmonary process. Carotid Doppler revealing less than 50% stenosis of the bilateral carotid bifurcations. Patient was admitted under our services with consultation to neurology. Echocardiogram revealing an EF of 40- 45% with severely increased septal wall thickness, moderate concentric LVH, mild right ventricular prominence, and mild mitral and tricuspid insufficiency. Lipid profile revealing elevated triglycerides of 191 and otherwise normal findings. TSH 2.460 with free T4 of 0.97. Patient remained free from any complaints since arrival to our facility. Neurology recommending dual antiplatelet therapy with aspirin and Plavix for 21 days followed by aspirin in definitely. Patient is medically stable for discharge at this time. Patient to follow-up outpatient with PCP, neurology, and cardiology. Physical exam: Patient seen and examined at bedside. Vital signs reviewed and stable. Obese. General: Nontoxic, no distress and appears stated age. Derm: Skin warm and dry, normal coloration for ethnicity. Head: Atraumatic, normocephalic and symmetric. Eyes: EOMs intact, no lid lag, and anicteric sclera Mouth: no lip lesions, mucus membranes moist Cardiovascular: Irregularly irregular, no murmur, positive posterior tibial pulses bilaterally, and cap refill < 2 seconds. Lungs: Respirations even, regular, and unlabored on room air. Lungs CTA bilaterally, no rhonchi, no rales, no wheezing, and no accessory muscle usage. Abdominal: soft, nontender to palpation, no guarding, no appreciable organomegaly Ext: ROM intact. No gross muscle atrophy, no edema, no contractures Neuro: Speech clear, face symmetrical and CN II-XII grossly intact with no noted focal neuro deficits Psych: Alert and oriented to person, place, time, and situation. Appropriate and pleasant affect. A total of 35 minutes of time were spent preparing this complex discharge summary. Pt was discharged on 04/22/22 at 12:20 PM I reviewed the documentation as provided by the ORVILLE above, who is the original author of this note. I agree with the documented assessment and plan, with the following changes: none Patient Condition at Discharge: Stable Plan - Discharge Summary New Discharge Prescriptions: New Aspirin 81 mg PO DAILY 30 Days #30 tab Clopidogrel [Plavix] 75 mg PO DAILY 21 Days #21 tab Atorvastatin [Lipitor] 40 mg PO DAILY 30 Days #30 tablet Continue Loratadine 10 mg PO HS Furosemide [Lasix] 80 mg PO BID Pramipexole [Mirapex] 1 mg PO DAILY@1500 allopurinoL [Zyloprim] 100 mg PO TID metOLazone [Zaroxolyn] 2.5 mg PO DAILY PRN PRN Reason: Edema Dulaglutide [Trulicity] 0.75 mg SQ SA Metoprolol Succinate [Toprol XL] 100 mg PO DAILY Gabapentin [Neurontin] 600 mg PO HS lisinopriL [Zestril] 5 mg PO DAILY Pramipexole [Mirapex] 2 mg PO DAILY@1900 Vit C/E/Zn/Coppr/Lutein/Zeaxan [Preservision Areds 2 Softgel] 1 cap PO BID Discharge Medication List Furosemide [Lasix] 80 mg PO BID 07/01/18 [History] Loratadine 10 mg PO HS 07/01/18 [History] Gabapentin [Neurontin] 600 mg PO HS 04/02/21 [History] Metoprolol Succinate [Toprol XL] 100 mg PO DAILY 04/02/21 [History] Pramipexole [Mirapex] 1 mg PO DAILY@1500 04/02/21 [History] Pramipexole [Mirapex] 2 mg PO DAILY@1900 04/02/21 [History] Vit C/E/Zn/Coppr/Lutein/Zeaxan [Preservision Areds 2 Softgel] 1 cap PO BID 04/02/21 [History] lisinopriL [Zestril] 5 mg PO DAILY 04/02/21 [History] Dulaglutide [Trulicity] 0.75 mg SQ SA 04/21/22 [History] allopurinoL [Zyloprim] 100 mg PO TID 04/21/22 [History] metOLazone [Zaroxolyn] 2.5 mg PO DAILY PRN 04/21/22 [History] Aspirin 81 mg PO DAILY 30 Days #30 tab 04/22/22 [Rx] Atorvastatin [Lipitor] 40 mg PO DAILY 30 Days #30 tablet 04/22/22 [Rx] Clopidogrel [Plavix] 75 mg PO DAILY 21 Days #21 tab 04/22/22 [Rx] Follow up Appointment(s)/Referral(s): ISAIAH FRANCISCO DO [REFERRING] - 1 Week (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 THE OFFICE PHONE NUMBER IS [phone]. MESSAGE WAS LEFT WITH OFFICE TO CONTACT PATIENT WITH APPOINTMENT DATE AND TIME, PT TO BE SEEN IN ONE WEEK. PATIENT'S NAME, BIRTHDATE AND PHONE NUMBER LEFT IN THE MESSAGE.) Elida Brennan MD [Medical Doctor] - 1 Week Nonstaff,Physician [Primary Care Provider] - 1 Week (DR. ZENY HAYWOOD IS PATIENTS PRIMARY CARE PHYSICIAN. PATIENT WANTS TO FOLLOW WITH THIS PHYSICIAN. DR HAYWOOD OFFICE REQUESTS THAT PATIENT CALL AND SCHEDULE AN APPOINTMENT. ) Santy Rueda, DO [Doctor of Osteopathic Medicine] - 1 Week (PATIENT HAS DR. ZENY HAYWOOD HIS PRIMARY CARE PHYSICIAN. ) Patient Instructions/Handouts: Aspirin (By mouth), Atorvastatin (By mouth), Clopidogrel (By mouth), Transient Ischemic Attack (DC), Heart Healthy Diet (DC), Basic Carbohydrate Counting (DC) Activity/Diet/Wound Care/Special Instructions: Activity: As tolerated. Take breaks as needed. Diet: Heart healthy and carb consistent diet. Avoid salts, or foods with hidden salts such as canned or boxed foods and frozen dinners. Extra salt makes your heart work harder and traps the fluid in your body for longer. Special Instructions: Take all of your medications as directed and remember to keep all of your doctor's appointments and follow-up as needed. You are being discharged home on dual antiplatelet therapy with aspirin and Plavix. You will need to continue to take these medications as directed. Aspirin and Plavix will be taken daily for the next 21 days and then you may discontinue Plavix and continue with a daily aspirin lifelong. It is important for you to follow-up with your method consultant as discussed as well as a neurologist and her primary care doctor. Thank you for allowing us to participate in your care, it was truly a pleasure having you for our patient!!! Discharge Disposition: HOME SELF-CARE
[2022-04-22 12:49] LABS: Glucose,Whole Blood 101 mg/dL (70-110)
--- NOTE | 2022-04-22 13:06 | P.CNNES ---
History of Present Illness Consult date: 04/22/22 Requesting physician: Pramod Haynes Reason for Consult: TIA History of Present Illness: Patient is a 77-year-old right-handed male with history of hypertension, diabetes, atrial fibrillation, status post watchman's device placement, came to the hospital yesterday at 11:50 AM for TIA. 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 He was bent for about half an hour. He worked really hard. When he stood up, his legs felt weak, not supporting him. He has to hang onto the chair. He sat down and felt somewhat better. However he noticed his left arm and left leg did not cooperate. It appeared ataxic as he was trying to grab something with his left hand. The symptoms lasted for about half an hour. When he stood up, he was still supporting himself by hanging onto something. While walking, he felt his left foot had a heavy weight on it. Patient states that while his was driving him to the hospital, he noticed that he was able to reach the radio knob with his left hand without any problem. Vital signs arrival blood pressure 97/65% 70 temperature at 7.7. CBC is normal, PT/PTT normal, CMP normal. Hemoglobin A1c 6.7, TFTs normal. CT head revealed age-related atrophy and chronic small vessel ischemic changes. Difficult to exclude chronic subdural hygromas. Correlate for left maxillary sinusitis. Consider MRI is indicated. I personally reviewed CT head. I do not believe there is evidence of subdural hygroma. There is significant amount of cerebral and cerebellar cortical atrophy with secondary prominence of the subdural space. Agree with evidence of complete opacification of left maxillary sinus. Other paranasal sinuses are clear. EKG shows atrial fibrillation. Low QRS voltage and extremity needs. Chest x-ray showed no acute cardiopulmonary process. Patient has history of hypertension, diabetes for last 2 years. He has atrial fibrillation. He underwent placement of watchman device about a year ago. He was in aspirin for about 6 months, thereafter he states that he stopped taking aspirin about 6 months ago. Patient's home medications include Lasix 80 mg twice a day, Mirapex 1 mg daily at 3 PM and 2 mg at 7 PM, metoprolol 100 mg daily, gabapentin 600 mg at bedtime, lisinopril 5 mg, allopurinol, Zaroxolyn, Trulicity. the patient states that his diamond setter Dr. Chatterjee told him to stop taking Plavix on 09/12/2021. He is not on aspirin. He is not taking any antiplatelet medication either. He never smoked, drinks alcohol socially. Not a drinker. He denies any aches or pains or headache. No previous history of strokes or TIA. Review of Systems Constitutional: Denies chills, Denies fever Eyes: denies blurred vision, denies pain Ears, nose, mouth and throat: Denies headache, Denies sore throat Cardiovascular: Denies chest pain, Denies shortness of breath Respiratory: Denies cough Gastrointestinal: Denies abdominal pain, Denies diarrhea, Denies nausea, Denies vomiting Musculoskeletal: Denies myalgias Integumentary: Denies pruritus, Denies rash Neurological: Reports as per HPI Psychiatric: Denies anxiety, Denies depression Endocrine: Denies fatigue, Denies weight change Hematologic/Lymphatic: Denies easy bruising Allergic/Immunologic: Denies seasonal allergies Past Medical History Past Medical History: Atrial Fibrillation, Heart Failure, Hyperlipidemia, Hypertension, Renal Disease History of Any Multi-Drug Resistant Organisms: None Reported Past Surgical History: Cholecystectomy, Hernia Repair, Pacemaker Past Psychological History: No Psychological Hx Reported Smoking Status: Never smoker Past Alcohol Use History: None Reported Past Drug Use History: None Reported Medications and Allergies Home Medications Medication Instructions Recorded Confirmed Type Furosemide [Lasix] 80 mg PO BID 07/01/18 04/21/22 History Loratadine 10 mg PO HS 07/01/18 04/21/22 History Gabapentin [Neurontin] 600 mg PO HS 04/02/21 04/21/22 History Metoprolol Succinate [Toprol XL] 100 mg PO DAILY 04/02/21 04/21/22 History Pramipexole [Mirapex] 1 mg PO DAILY@1500 04/02/21 04/21/22 History Pramipexole [Mirapex] 2 mg PO DAILY@1900 04/02/21 04/21/22 History Vit C/E/Zn/Coppr/Lutein/Zeaxan 1 cap PO BID 04/02/21 04/21/22 History [Preservision Areds 2 Softgel] lisinopriL [Zestril] 5 mg PO DAILY 04/02/21 04/21/22 History Dulaglutide [Trulicity] 0.75 mg SQ SA 04/21/22 04/21/22 History allopurinoL [Zyloprim] 100 mg PO TID 04/21/22 04/21/22 History metOLazone [Zaroxolyn] 2.5 mg PO DAILY PRN 04/21/22 04/21/22 History Aspirin 81 mg PO DAILY 30 Days #30 tab 04/22/22 Rx Atorvastatin [Lipitor] 40 mg PO DAILY 30 Days #30 tablet 04/22/22 Rx Clopidogrel [Plavix] 75 mg PO DAILY 21 Days #21 tab 04/22/22 Rx Allergies Allergy/AdvReac Type Severity Reaction Status Date / Time No Known Allergies Allergy Verified 04/21/22 14:43 Physical Examination - Vital Signs Vital Signs: Vital Signs Temp Pulse Pulse Resp BP BP Pulse Ox 04/22/22 07:00 97.5 F L 66 18 127/84 96 04/22/22 06:59 89 16 98/49 97 04/22/22 04:00 98 F 78 18 145/88 99 04/22/22 01:09 69 16 98/58 96 04/21/22 19:40 78 18 100/68 96 04/21/22 16:19 87 18 100/69 96 04/21/22 12:35 76 16 101/75 96 04/21/22 11:55 97.7 F 70 18 97/65 96 Patient is an elderly male, in no acute distress. Patient is alert awake oriented to time place and person. Speech and language functions are normal. Patient can name and repeat very well. No aphasia or dysarthria. Attention, concentration and fund of knowledge is adequate. On cranial nerve examination, pupils are equal, round and reacting to light, visual jimenez are full on confrontation, with no neglect on double simultaneous depression. Extraocular muscles are intact with slight nystagmus looking to the left. Face is symmetric, tongue protrudes to the midline. Palatal elevation and sensation normal, hearing and shoulder shrug normal, facial sensation normal. He has mild proptosis. On muscle strength testing, there is no pronator drift and the strength is normal in arms and legs distally and proximally. Deep tendon reflexes are symmetric 1 in the upper limbs, 2 at the right knee, 2+ left knee, absent ankles bilaterally. His plantar is downgoing on the right, up going on left. Sensory to touch is equal with no neglect on double simultaneous stimulation. Cerebellar function showed no ataxia for [id number] testing. No dysdiadochokinesia. No ataxia for dmos-xi-icdq testing on either side. Tone and bulk of muscles normal. Gait deferred.. On general examination, there is no carotid bruit or murmur, S1-S2 audible. Chest is clear on consultation. Abdomen is soft nontender. No organomegaly, bowel sounds present. Patient has moderate peripheral edema. He has hyperpigmentation in bilateral lower limbs from below knee and down to the ankles. Feet are not much swollen. Results - Laboratory Findings CBC and BMP: 04/21/22 12:23 04/21/22 12:23 Abnormal Lab Findings: Abnormal Labs 04/21/22 04/21/22 04/21/22 12:16 12:23 12:23 RDW 16.7 H Lymphocytes # 0.7 L BUN 32 H Glucose 133 H POC Glucose (mg/dL) 137 H Hemoglobin A1c 04/21/22 04/21/22 04/22/22 17:22 20:36 04:33 RDW Lymphocytes # BUN Glucose POC Glucose (mg/dL) 144 H 134 H Hemoglobin A1c 6.7 H 04/22/22 07:39 RDW Lymphocytes # BUN Glucose POC Glucose (mg/dL) 112 H Hemoglobin A1c Assessment and Plan Assessment: * Transient cerebral ischemia, manifesting with transient left-sided weakness, that resolved in half an hour. Current NIH stroke scale is 0. * Atrial fibrillation, status post watchman device * Diabetes * Left maxillary sinus opacification. Plan: * CTA of head and neck showed no significant abnormality. No evidence of stenosis. * Carotid Doppler revealed less than 50% stenosis of bilateral carotid bifurcations. Antegrade flow in the right vertebral artery. Retrograde flow in the left vertebral artery. * 2-D echo revealed normal left ventricular size and systolic function with EF 40-45%. Moderate concentric LVH, somewhat increased septal compared to rest ventricle. Mild right ventricular prominence. Aortic valve sclerosis. * Cardiology has been consulted for atrial fibrillation. I would defer anticoagulation to the cardiology. Patient had undergone watchman device in the past. If no indication for anticoagulation, then would recommend placement on dual antiplatelet medication with Plavix 75 mg and aspirin 81 mg daily for 21 days, then stop Plavix and continue aspirin indefinitely. * Hemoglobin A1c 6.7 * Lipid panel with cholesterol 121, LDL 42, HDL 40 and triglycerides 191. Cardiology has started patient on Lipitor 20 mg daily. * Recommend healthy lifestyles with moderate exercise and weight reduction. * For left maxillary sinus opacification, will defer to internal medicine. May follow up with ENT as an outpatient. * Neurologically clear for discharge, if cleared with cardiology.
[2022-04-22 15:18] VITALS: BP 105/68; PULSE 64; RESP 17; TEMP 97.8
--- NOTE | 2022-04-22 21:40 | CONS ---
CONSULTATION HISTORY OF PRESENT ILLNESS: Talha Hdez is a gentleman who is 77 years of age, who has most of his health care in the [facility] and also has chronic atrial fibrillation, hypertension, and type 2 diabetes mellitus. About 9 months ago, he had a Watchman device placed and since then he has not had any issues. However, he came into the hospital with episode of what he felt was extreme weakness and lightheadedness, dizziness, and some specifically involuntary movement of the left upper and lower extremity. 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 This symptom has passed. He was a little dehydrated when he came in. He did receive some IV fluids. His rhythm strips suggests atrial fibrillation, controlled ventricular rate. He also has underlying sick sinus syndrome and a permanent pacemaker. He has no orthostatic changes today. He is resting comfortably without symptoms. PAST MEDICAL HISTORY: 1. Chronic atrial fibrillation with sick sinus syndrome, status post permanent pacemaker and Watchman device. 2. Hypertension. 3. Hyperlipidemia. 4. Type 2 diabetes. MEDICATIONS: At home include: 1. Trulicity. 2. Zaroxolyn. 3. Metoprolol succinate 100 mg daily. 4. Lisinopril 5 mg daily. 5. Neurontin and Lasix 80 mg b.i.d. PAST MEDICAL HISTORY: Not much past history is available and it is unclear if the patient has any heart failure by history or not but he is clinically not in heart failure. DIAGNOSTIC DATA: CT angiogram of the neck and head reveals no evidence of any significant obstructive disease. PHYSICAL EXAMINATION: VITAL SIGNS: On examination, blood pressure is 116/70; pulse rate is 60 per minute, irregular. HEENT: Unremarkable. Fundus was not examined by me. NECK: Supple. No JVD. I do not hear a carotid bruit. HEART: Exam reveals S1, S2 with a short systolic murmur. Irregular rhythm. LUNGS: Reveal bilateral decent air entry. ABDOMEN: Distended, nontender. LOWER EXTREMITIES: Reveal diminished pulses, trace edema bilaterally. CENTRAL NERVOUS SYSTEM: Grossly no focal deficits. IMPRESSION: 1. Dehydration and vasovagal episode without syncope. 2. Chronic atrial fibrillation, status post permanent pacemaker and Watchman device. 3. Hypertension. 4. Type 2 diabetes mellitus. 5. Hyperlipidemia. RECOMMENDATIONS: I am recommending that we supplement his potassium 20 mEq, increase activity and await further input from Neurology, but from a cardiac standpoint no intervention is necessary. He can be discharged whenever okayed by the neurologist. 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 ASPEN / ROSENDON: [id number] /
--- NOTE | 2022-05-03 05:24 | CDI ---
Documentation Clarification Form Date: 05/03/2022 05:17:47 AM From: Corrina Navarrete Phone: Admit Date: 04/21/2022 01:41:00 PM Patient Name: Talha Hdez Visit Number: [id number] Discharge Date: Payor: MEDICARE Dear Dr. Bob Hernandez, In order to accurately reflect this patients severity of illness, would you please clarify: if the carotid stenosis is related or unrelated to the TIA. Documentation is unclear. Please respond to the query below the line at the bottom. Thank you for your kind consideration, I did not see this patient. Thank you. JAYME
--- NOTE | 2022-05-10 12:16 | CDI ---
[facility] [address] [place] [address] Date: 05/10/2022 12:12:46 PM From: Corrina Navarrete Phone: Admit Date: 04/21/2022 01:41:00 PM Patient Name: Talha Hdez Visit Number: [id number] Discharge Date: Payor: MEDICARE Dr. Bobbi Moon, History/Risk Factors: Clinical Indicators: Treatment: In order to accurately reflect this patients severity of illness, would you please clarify: if the carotid stenosis is related or unrelated to the TIA. Documentation is unclear. Please respond to the query below the line at the bottom. Thank you for your kind consideration, I am unsure if the carotid stenosis is the cause of his TIA MTDD
== END 2022-04-22 15:25 | disposition home or self-care (01) ==
LOC: EC 11:50 → 6NMEDSUR 13:41
PROVIDERS: ADMIT Student in an Organized Health Care Education/Training Program; ATTEND Student in an Organized Health Care Education/Training Program
DX: G45.9 Transient cerebral ischemic attack, unspecified (principal); I48.20 Chronic atrial fibrillation, unspecified; I65.23 Occlusion and stenosis of bilateral carotid arteries; I67.89 Other cerebrovascular disease; E86.0 Dehydration; I08.3 Combined rheumatic disorders of mitral, aortic and tricuspid valves; I11.0 Hypertensive heart disease with heart failure; I50.9 Heart failure, unspecified; N28.9 Disorder of kidney and ureter, unspecified; I49.5 Sick sinus syndrome; E78.5 Hyperlipidemia, unspecified; E78.1 Pure hyperglyceridemia; J32.0 Chronic maxillary sinusitis; M10.9 Gout, unspecified; E11.42 Type 2 diabetes mellitus with diabetic polyneuropathy; E66.9 Obesity, unspecified; Z68.35 Body mass index [BMI] 35.0-35.9, adult; J30.2 Other seasonal allergic rhinitis; Z95.0 Presence of cardiac pacemaker; Z90.49 Acquired absence of other specified parts of digestive tract; Z98.890 Other specified postprocedural states; Z95.811 Presence of heart assist device; Z79.84 Long term (current) use of oral hypoglycemic drugs; Z79.899 Other long term (current) drug therapy; Z79.85 Long-term (current) use of injectable non-insulin antidiabetic drugs
CPT/HCPCS: 96372 ×2; 99285; 36415; 93005; 93306; 97162; 97166; 84439; 84481; 80061; 80053; 84443; 85025; 85610; 85730; 83036; 71046; 93880; 70496; 70450; 70498; G0378 ×2; Q9967; J1644 ×2

== ENCOUNTER → 2022-05-01 | Outpatient (CLI) | payer MEDICARE, BC ==
[2022-05-01 16:14] LABS: ALT 42 U/L (10-49); AST 37 U/L (14-35); Chol/HDL Ratio 3.77 Ratio; Glucose 139 mg/dL (70-110); LDL Cholesterol,Calculated 69.2 mg/dL (0.0-131.0); Uric Acid 6.4 mg/dL (3.7-8.7)
== END | disposition home or self-care (01) ==
LOC: LABWHC1 10:20
PROVIDERS: ATTEND Family Medicine
DX: E11.9 Type 2 diabetes mellitus without complications (principal); E78.2 Mixed hyperlipidemia; Z79.899 Other long term (current) drug therapy
CPT/HCPCS: 36415; 80061; 82947; 84450; 84460; 84550

== ENCOUNTER → 2022-07-08 | Outpatient (CLI) | payer MEDICARE, BC ==
[2022-07-08 14:15] LABS: Basophils # (A) 0.07 X 10*3/uL (0.00-0.10); Basophils % (A) 1.1 %; Eosinophils % (A) 3.2 %; HCT 49.1 % (39.6-50.0); HGB 16.1 g/dL (13.0-17.0); Immature Grans, Automated 0.6 %; Lymphocytes # (A) 0.97 X 10*3/uL (0.90-5.00); Lymphocytes % (A) 15.6 %; MCH 30.2 pg (27.0-32.0); MCHC 32.8 g/dL (32.0-37.0); MCV 92.1 fL (80.0-97.0); Monocytes # (A) 0.42 X 10*3/uL (0.20-1.00); Monocytes % (A) 6.8 %; NRBC Per 100 WBC 0 /100 WBCS (0.0-0.0); Neutrophils % (A) 72.7 %; Platelet Count 149 X 10*3/uL (140-440); RBC 5.33 X 10*6/uL (4.40-5.60); RDW 16.7 % (11.5-14.5)
[2022-07-08 14:44] LABS: African American GFR (CKD) 57.5 (60.0-200.0); Albumin 4.2 g/dL (3.8-4.9); Anion Gap 11.3 mmol/L (10.00-18.00); BUN/Creat Ratio 24.52 Ratio (12.00-20.00); Blood Urea Nitrogen 33.1 mg/dL (9.0-27.0); Calcium 8.4 mg/dL (8.7-10.3); Carbon Dioxide 30.3 mmol/L (20.0-27.5); Magnesium 2.2 mg/dL (1.5-2.4); Non-African American GFR(CKD) 49.6 (60.0-200.0); Phosphorus 2.2 mg/dL (2.4-5.1); Potassium 3.8 mmol/L (3.5-5.5)
[2022-07-08 18:26] LABS: Appearance,Urine Clear (Clear); Bilirubin,Urine Negative (Negative); Blood,Urine Negative (Negative); Color,Urine Yellow (Yellow); Ketones,Urine Negative (Negative); Nitrite,Urine Negative (Negative); PH, Urine 5.5 (5.0-8.0); Specific Gravity,Urine 1.018 (1.001-1.030); Urobilinogen,Urine 0.2 (0.2,1.0)
== END | disposition home or self-care (01) ==
LOC: LABWHC1 11:03
PROVIDERS: ATTEND Internal Medicine
DX: I13.0 Hypertensive heart and chronic kidney disease with heart failure and stage 1 through stage 4 chronic kidney disease, or unspecified chronic kidney disease (principal); E11.22 Type 2 diabetes mellitus with diabetic chronic kidney disease; N18.31 Chronic kidney disease, stage 3a; I50.42 Chronic combined systolic (congestive) and diastolic (congestive) heart failure; E11.21 Type 2 diabetes mellitus with diabetic nephropathy
CPT/HCPCS: 36415; 80048; 81003; 82040; 82043; 82570; 83735; 83970; 84100; 85025

== ENCOUNTER → 2022-12-06 | Outpatient (CLI) | payer MEDICARE, BC | END | disposition home or self-care (01) | LOC: LABWHC1 08:38 | PROVIDERS: ATTEND Family Medicine | DX: E11.9 Type 2 diabetes mellitus without complications (principal) | CPT/HCPCS: 36415; 82947; 83036 ==

== ENCOUNTER → 2023-01-10 | Outpatient (CLI) | payer MEDICARE, BC ==
[2023-01-10 16:35] LABS: BUN/Creat Ratio 29.17 Ratio (12.00-20.00); Blood Urea Nitrogen 67.1 mg/dL (9.0-27.0); Carbon Dioxide 27.6 mmol/L (21.6-31.8); Chloride 92 mmol/L (96-109); Glucose 159 mg/dL (70-110); Potassium 3.3 mmol/L (3.5-5.5); Sodium 135 mmol/L (135-145)
== END | disposition home or self-care (01) ==
LOC: LABWHC1 09:37
PROVIDERS: ATTEND Internal Medicine
DX: I12.9 Hypertensive chronic kidney disease with stage 1 through stage 4 chronic kidney disease, or unspecified chronic kidney disease (principal); N18.31 Chronic kidney disease, stage 3a; E11.21 Type 2 diabetes mellitus with diabetic nephropathy
CPT/HCPCS: 36415; 80048; 83735

== ENCOUNTER → 2023-03-12 | Outpatient (CLI) | payer MEDICARE, BC ==
[2023-03-12 16:56] LABS: ALT 37 U/L (10-49); AST 34 U/L (14-35); Chol/HDL Ratio 3.12 Ratio; Glucose 152 mg/dL (70-110); LDL Cholesterol,Calculated 66.5 mg/dL (0.0-131.0); Uric Acid 6.6 mg/dL (3.7-8.7)
== END | disposition home or self-care (01) ==
LOC: LABWHC1 09:12
PROVIDERS: ATTEND Family Medicine
DX: E11.65 Type 2 diabetes mellitus with hyperglycemia (principal); E78.2 Mixed hyperlipidemia; M10.9 Gout, unspecified; Z79.899 Other long term (current) drug therapy
CPT/HCPCS: 36415; 80061; 82947; 83036; 84450; 84460; 84550

== ENCOUNTER → 2023-04-09 | Outpatient (CLI) | payer MEDICARE, BC ==
[2023-04-09 16:20] LABS: Albumin 4.4 d/dL (3.8-4.9); BUN/Creat Ratio 32.29 Ratio (12.00-20.00); Blood Urea Nitrogen 45.2 mg/dL (9.0-27.0); Calcium 9.7 mg/dL (8.7-10.3); Carbon Dioxide 26.9 mmol/L (21.6-31.8); Chloride 98 mmol/L (96-109); Glucose 141 mg/dL (70-110); Magnesium 1.9 mg/dL (1.5-2.4); Phosphorus 3.7 mg/dL (2.4-5.1); Potassium 3.6 mmol/L (3.5-5.5); Sodium 140 mmol/L (135-145)
[2023-04-09 18:33] LABS: Urine Creatinine 94.2 mg/dL (39.0-259.0)
== END | disposition home or self-care (01) ==
LOC: LABWHC1 09:56
PROVIDERS: ATTEND Internal Medicine
DX: I50.42 Chronic combined systolic (congestive) and diastolic (congestive) heart failure (principal); N18.31 Chronic kidney disease, stage 3a; E11.21 Type 2 diabetes mellitus with diabetic nephropathy; E11.22 Type 2 diabetes mellitus with diabetic chronic kidney disease
CPT/HCPCS: 36415; 80048; 82040; 82043; 82570; 83735; 84100